=== PATIENT | female | born 1995 | race Caucasian/White ===

== ENCOUNTER 2019-06-19 13:00 | Emergency (ER) | payer MEDICAID ==
[2019-06-19] MEDS: KETOROLAC 30 MG INJ IM (13:56)
[2019-06-19] MEDS: CYCLOBENZAPRINE 10 MG TAB PO (13:56)
== END 2019-06-19 14:41 | disposition home or self-care (01) ==
LOC: FTE 13:00
DX: M54.42 Lumbago with sciatica, left side (principal)
CPT/HCPCS: 81025; 96372; 99284-25